=== PATIENT | male | born 1970 | race African-American/Black ===

== ENCOUNTER 2019-06-16 15:21 | Inpatient (IN) ==
[2019-06-16 15:56] LABS: Basophils % 0.4 % (0.0-0.8); Eosinophils # 0.1 10*3/uL (0.0-0.87); Eosinophils % 1.7 % (0.00-10.9); Hematocrit 38.4 VOL% (42.0-52.0); Hemoglobin 13.4 GM/DL (14.0-18.0); Immature Granulocytes % 0.4 %; Immature Granulocytes Absolute 0.03 #; Lymphocytes # 1.7 10*3/uL (1.4-4.0); Lymphocytes % 21.7 % (21.2-54.2); Mean Corpuscular HGB Conc 34.9 GM/DL (32-36); Mean Corpuscular Volume 87.9 FL (87-102); Monocytes % 8.4 % (1.7-12.7); Neutrophils % 67.4 % (38.7-73.9); Platelet Count 223 T/CUMM (130-400); Red Blood Count 4.37 MC/CUMM (3.8-5.5); Red Cell Distribution Width 11.8 % (9.3-17.3); White Blood Count 7.7 T/CUMM (4-12)
[2019-06-16 16:03] LABS: Apearance,Urine CLEAR (Clear); Bilirubin,Urine Negative (Negative); Blood, Urine Negative (Negative); Glucose,Urine (UA) >=500 mg/dL (Negative); Ketones,Urine 20 mg/dL (Negative); Nitrite,Urine Negative (Negative); Protein,Urine Negative; RBC,Urine <1 /HPF (0-4); Urine Color Colorless (Yellow); Urine Specific Gravity 1.028 (1.001-1.035); Urine Urobilinogen < 2.0 EU/DL (0.2-1.0)
[2019-06-16] MEDS ORDERED: SODIUM CHLORIDE 0.9% 1,000 ML IV STA (16:15)
[2019-06-16] MEDS ORDERED: INSULIN REGULAR 100 UNIT/ML IV STA (16:24)
[2019-06-16 16:32] LABS: INR 0.9; PT Patient Result 10.3 SECS (9.6-12.2); Partial Thromboplastin Time 26.9 SECS (20.8-36.0)
[2019-06-16 16:33] LABS: Albumin 3.4 G/DL (3.4-5.0); Bilirubin,Total 0.5 MG/DL (0.2-1.0); Calcium 8.3 MG/DL (8.5-10.1); Osmolality,Calculated 289.8 MOS/KG (273-304); Total Protein 7.1 G/DL (6.4-8.3)
[2019-06-16 16:55] LABS: Amylase 89 U/L (25-115); Troponin I < 0.015 NG/ML (0.00-0.045)
[2019-06-16] MEDS ORDERED: ACETAMINOPHEN 325 MG TABLET PO PRN (20:22)
[2019-06-16] MEDS ORDERED: traZODone 50 MG TABLET PO PRN (20:22)
[2019-06-16] MEDS ORDERED: ONDANSETRON 4 MG/2 ML VIAL IV PRN (20:22)
[2019-06-16] MEDS ORDERED: DOCUSATE SODIUM 100 MG CAPSULE PO PRN (20:22)
[2019-06-16] MEDS ORDERED: amLODIPine 10 MG TABLET PO ONE (20:24)
[2019-06-16] MEDS ORDERED: GLUCAGON 1 MG VIAL IM PRN (20:25)
[2019-06-16] MEDS ORDERED: DEXTROSE 50% 25 GM/50 ML VIAL IV PRN (20:25)
[2019-06-16] MEDS: ENOXAPARIN 40 MG/0.4 ML SYRINGE SUBCUT SCH (20:52)
[2019-06-16] MEDS: CARVEDILOL 3.125 MG TABLET PO SCH (20:52)
[2019-06-16] MEDS: SODIUM CHLORIDE 0.45% 1,000 ML IV SCH (20:53)
[2019-06-16] MEDS ORDERED: INSULIN REGULAR 100 UNIT/ML SUBCUT SCH (21:00)
[2019-06-16] MEDS ORDERED: INSULIN GLARGINE 100 UNIT/ML SUBCUT SCH (21:00)
[2019-06-16 21:38] LABS: ABG Base Excess -2.6 MMOL/L (-2.5-2.5); ABG HCO3 21.9 MMOL/L (20-26); ABG Oxygen Saturation 95.4 % (95-100); ABG PCO2 37.1 MM HG (35-48); ABG PH 7.389 (7.35-7.45); ABG PO2 81.2 MM HG (80-95)
[2019-06-16] MEDS ORDERED: INSULIN REGULAR 100 UNIT/ML SUBCUT ONE (23:16)
[2019-06-17] MEDS: SODIUM CHLORIDE 0.45% 1,000 ML IV SCH ×3 (05:15→20:05)
[2019-06-17 06:14] LABS: Calcium 8.3 MG/DL (8.5-10.1); Osmolality,Calculated 284.7 MOS/KG (273-304); Risk Ratio 9.38; VLDL CHOLESTEROL 164.4 MG/DL
[2019-06-17] MEDS: metFORMIN 500 MG TABLET PO SCH ×2 (07:50→16:50)
[2019-06-17] MEDS: CARVEDILOL 3.125 MG TABLET PO SCH (07:51)
[2019-06-17] MEDS: INSULIN LISPRO 100 UNIT/ML SUBCUT SCH ×6 (07:51→20:13)
[2019-06-17] MEDS ORDERED: POTASSIUM CHLORIDE 20 MEQ TABLET PO ONE (09:00)
[2019-06-17] MEDS ORDERED: ASPIRIN EC 81 MG TABLET PO SCH (09:00)
[2019-06-17] MEDS ORDERED: amLODIPine 10 MG TABLET PO SCH (09:00)
[2019-06-17] MEDS: OMEGA 3 ACID ETHYL ESTERS 1 GM CAPSULE PO SCH ×2 (10:38→20:05)
[2019-06-17] MEDS ORDERED: NITROGLYCERIN SL 0.4 MG TABLET SL PRN (11:48)
[2019-06-17] MEDS ORDERED: MORPHINE 4 MG/1 ML VIAL IV PRN (11:51)
[2019-06-17 13:48] LABS: Troponin I < 0.015 NG/ML (0.00-0.045)
[2019-06-17] MEDS: ASPIRIN EC 325 MG TABLET PO SCH (15:57)
[2019-06-17] MEDS: ISOSORBIDE MONONITRATE 60 MG TABLET PO SCH (15:57)
[2019-06-17] MEDS: INSULIN NPH/REGULAR 70/30 100 UNIT/ML SUBCUT SCH (16:51)
[2019-06-17] MEDS ORDERED: CARVEDILOL 12.5 MG TABLET PO SCH ×2 (17:00→20:59)
[2019-06-17 17:53] LABS: Troponin I < 0.015 NG/ML (0.00-0.045)
[2019-06-17] MEDS: ENOXAPARIN 40 MG/0.4 ML SYRINGE SUBCUT SCH (20:05)
[2019-06-17] MEDS ORDERED: INSULIN GLARGINE 100 UNIT/ML SUBCUT SCH (21:00)
[2019-06-17 23:40] LABS: Troponin I < 0.015 NG/ML (0.00-0.045)
[2019-06-18] MEDS: SODIUM CHLORIDE 0.45% 1,000 ML IV SCH ×3 (03:39→21:20)
[2019-06-18 06:27] LABS: Calcium 8.3 MG/DL (8.5-10.1); Osmolality,Calculated 283.5 MOS/KG (273-304)
[2019-06-18] MEDS: OMEGA 3 ACID ETHYL ESTERS 1 GM CAPSULE PO SCH ×2 (07:59→21:23)
[2019-06-18] MEDS: metFORMIN 500 MG TABLET PO SCH ×2 (07:59→16:34)
[2019-06-18] MEDS: INSULIN LISPRO 100 UNIT/ML SUBCUT SCH (08:00)
[2019-06-18] MEDS: ASPIRIN EC 325 MG TABLET PO SCH (08:00)
[2019-06-18] MEDS: INSULIN NPH/REGULAR 70/30 100 UNIT/ML SUBCUT SCH ×2 (08:01→16:35)
[2019-06-18] MEDS: ROSUVASTATIN 20 MG TABLET PO SCH (08:06)
[2019-06-18] MEDS: ISOSORBIDE MONONITRATE 60 MG TABLET PO SCH (08:06)
[2019-06-18] MEDS ORDERED: ATORVASTATIN 40 MG TABLET PO SCH (09:00)
[2019-06-18] MEDS: INSULIN REGULAR 100 UNIT/ML SUBCUT SCH ×3 (12:27→21:23)
[2019-06-18] MEDS: ACETAMINOPHEN 325 MG TABLET PO SCH ×2 (13:05→21:22)
[2019-06-18] MEDS: GABAPENTIN 100 MG CAPSULE PO SCH ×2 (13:05→21:22)
[2019-06-18] MEDS: CARVEDILOL 12.5 MG TABLET PO SCH (16:34)
[2019-06-18] MEDS: LISINOPRIL 10 MG TABLET PO SCH (18:34)
[2019-06-18] MEDS ORDERED: CARVEDILOL 25 MG TABLET PO SCH (21:00)
[2019-06-18] MEDS: ENOXAPARIN 40 MG/0.4 ML SYRINGE SUBCUT SCH (21:22)
[2019-06-19] MEDS: SODIUM CHLORIDE 0.45% 1,000 ML IV SCH ×2 (05:02→12:54)
[2019-06-19 05:59] LABS: Calcium 8.5 MG/DL (8.5-10.1); Osmolality,Calculated 278.5 MOS/KG (273-304)
[2019-06-19] MEDS ORDERED: POTASSIUM CHLORIDE 20 MEQ TABLET PO PRN (08:17)
[2019-06-19] MEDS ORDERED: LISINOPRIL 2.5 MG TABLET PO SCH (09:00)
[2019-06-19] MEDS: INSULIN NPH/REGULAR 70/30 100 UNIT/ML SUBCUT SCH (09:28)
[2019-06-19] MEDS: INSULIN REGULAR 100 UNIT/ML SUBCUT SCH ×2 (09:28→12:25)
[2019-06-19] MEDS: ASPIRIN EC 325 MG TABLET PO SCH (09:29)
[2019-06-19] MEDS: ROSUVASTATIN 20 MG TABLET PO SCH (09:29)
[2019-06-19] MEDS: metFORMIN 500 MG TABLET PO SCH (09:29)
[2019-06-19] MEDS: OMEGA 3 ACID ETHYL ESTERS 1 GM CAPSULE PO SCH (09:29)
[2019-06-19] MEDS: LISINOPRIL 10 MG TABLET PO SCH (09:29)
[2019-06-19] MEDS: ISOSORBIDE MONONITRATE 60 MG TABLET PO SCH (09:29)
[2019-06-19] MEDS: CARVEDILOL 12.5 MG TABLET PO SCH (09:30)
[2019-06-19] MEDS: ACETAMINOPHEN 325 MG TABLET PO SCH (09:30)
[2019-06-19] MEDS ORDERED: POTASSIUM CHLORIDE 20 MEQ TABLET PO ONE (10:54)
[2019-06-19] MEDS: GABAPENTIN 100 MG CAPSULE PO SCH (11:08)
[2019-06-19 12:04] VITALS: BP 135/83
== END 2019-06-19 13:25 | disposition home or self-care (01) | DRG 638 ==
LOC: N.ED 15:21 → N.EDINP 18:29 → N.2E 19:34
PROVIDERS: ADMIT Hospitalist; ATTEND Hospitalist